=== PATIENT | female | born 1945 | race Caucasian/White ===

== ENCOUNTER 2018-10-08 15:49 | Emergency (ER) | payer MEDICARE ==
[~2018-10-08] VITALS: Ht 165.1 cm; Wt 75.8 kg
[~2018-10-08 15:49] MED LIST: ASPIR 8181 MG PO; CITALOPRAM HBR10 MG PO; LOVASTATIN10 MG PO; VITAMIN D32000 UNIT PO
== END 2018-10-08 17:00 | disposition home or self-care (01) ==
LOC: ED 15:49
PROC: 0HQKXZZ Repair Right Lower Leg Skin, External Approach (ICD-10-PCS; principal; 2018-10-08)
DX: S91.111A Laceration without foreign body of right great toe without damage to nail, initial encounter (principal); I10 Essential (primary) hypertension; Z85.3 Personal history of malignant neoplasm of breast; Z88.2 Allergy status to sulfonamides; Z88.1 Allergy status to other antibiotic agents; Z79.82 Long term (current) use of aspirin; Z79.899 Other long term (current) drug therapy; W22.8XXA Striking against or struck by other objects, initial encounter
CPT/HCPCS: 12001; 73660; 90471; 90715; 99283-25